=== PATIENT | male | born 1995 | race Two or more races ===

== ENCOUNTER 2018-02-16 18:43 | Emergency (ER) | payer OTHER ==
[~2018-02-16] VITALS: Ht 170.2 cm; Wt 78.7 kg
[2018-02-16 18:56] VITALS: BP 108/66
[2018-02-16] MEDS ORDERED: PROPARACAINE OPHTH 0.5%, 15ML ONE (19:28)
[2018-02-16] MEDS ORDERED: FLUORESCEIN/BENOXINATE 5 ML DROPS OP ONE (19:30)
== END 2018-02-16 22:34 | disposition home or self-care (01) ==
LOC: ED 22:33
DX: T15.02XA Foreign body in cornea, left eye, initial encounter (principal); X58.XXXA Exposure to other specified factors, initial encounter; Y93.89 Activity, other specified; Y92.89 Other specified places as the place of occurrence of the external cause; Y99.8 Other external cause status
CPT/HCPCS: 99283